=== PATIENT | female | born 1950 | race Caucasian/White ===

== ENCOUNTER 2020-02-09 12:42 | Observation (INO) ==
[~2020-02-09 12:42] MED LIST: Buffered Lidocaine 1% SYRIN 1 ml INTRADERM ONE; Dexamethasone IV 4 MG/ML VIAL 1 ml VIAL IV SLOW PU ONE; Lactated Ringers 1000 ml BAG 1,000 ML IV SCH
[2020-02-09] MEDS ORDERED: Dexamethasone IV 4 MG/ML VIAL 1 ml VIAL ONE (13:05)
[2020-02-09] MEDS ORDERED: ceFAZolin 2 GM PREMIX 2 GM/50 ML BAG ONE (13:05)
[2020-02-09] MEDS ORDERED: Lidocaine 2% PF 5 ML VIAL ONE (13:10)
[2020-02-09] MEDS ORDERED: Ondansetron 4 mg VIAL 2 MG/ML 2 ml VIAL ONE (13:10)
[2020-02-09] MEDS ORDERED: Bupivacaine 0.5% 50 ML MDV VIAL ONE (14:57)
[2020-02-09] MEDS ORDERED: Propofol 10 mg/ml 100 ML BTL 100 ML ONE (14:58)
[2020-02-09] MEDS ORDERED: ROPIVACAINE 5 MG/ML 30 ML BTL (0.5%) ONE (15:04)
[2020-02-09] MEDS ORDERED: Midazolam 5 mg/ml concentrated 5 mg/ml 1 ml VIAL ONE (15:31)
[2020-02-09] MEDS ORDERED: HYDROmorphone 1 MG/1 ML SYRINGE IV PRN (16:02)
[2020-02-09] MEDS ORDERED: Naloxone 0.4 mg VIAL 0.4 mg/ml 1 ml VIAL IV PRN (16:02)
[2020-02-09] MEDS ORDERED: fentaNYL 100 mcg/2 ml 50 MCG/ML VIAL IV PRN (16:02)
[2020-02-09] MEDS ORDERED: Ondansetron 4 mg VIAL 2 MG/ML 2 ml VIAL IV PRN ×2 (16:02→17:20)
[2020-02-09] MEDS ORDERED: Magnesium Hydroxide LIQ 30 ML UDC PO PRN (17:20)
[2020-02-09] MEDS ORDERED: Ondansetron ODT 4 mg TAB 4 MG TAB PO PRN (17:20)
[2020-02-09] MEDS ORDERED: diPHENhydraMINE IV 50 MG/ML 1 ml VIAL (BENADRYL) IV PRN (17:20)
[2020-02-09] MEDS ORDERED: oxyCODONE/Acetamin 5/325 mg TAB PO PRN (17:20)
[2020-02-09] MEDS ORDERED: Lactulose 30 ml UDC PO PRN (17:20)
[2020-02-09] MEDS ORDERED: Morphine 2 MG/ML SYRINGE IV PRN (17:20)
[2020-02-09] MEDS ORDERED: diPHENhydraMINE 25 mg TAB PO PRN (17:20)
[2020-02-09] MEDS ORDERED: oxyCODONE/Acetamin 5/325 mg TAB ONE (19:26)
[2020-02-09] MEDS: oxyCODONE/Acetamin 5/325 mg TAB PO PRN (19:36)
[2020-02-09] MEDS: Lactated Ringers 1000 ml BAG 1,000 ML IV SCH (20:45)
[2020-02-09] MEDS: ceFAZolin 1 GM ADVAN 1 GM in NS 0.9% 50 ML 50 ML IVPB SCH (22:18)
[2020-02-09] MEDS: Magnesium Hydroxide LIQ 30 ML UDC PO SCH (22:21)
[2020-02-10] MEDS: oxyCODONE/Acetamin 5/325 mg TAB PO PRN (00:19)
[2020-02-10] MEDS: ceFAZolin 1 GM Q8H (ADVAN) IVPB SCH ×2 (00:27→07:46)
[2020-02-10] MEDS: Lactated Ringers 1000 ml BAG 1,000 ML IV SCH (07:12)
[2020-02-10] MEDS ORDERED: Vitamin THERAPEUTIC TAB PO SCH (09:00)
[2020-02-10 10:14] LABS: Hematocrit 34 % (35-47); Hemoglobin 11.1 g/dL (12.0-16.0); Mean Platelet Volume 9.7 fL (7.4-10.4); Platelet Count 267 10^3/uL (150-450)
[2020-02-10 10:37] LABS: BUN/Creatinine Ratio 17.1 (8-20); Calcium 9.3 mg/dL (8.6-10.3); EGFR African American 91.3 (>60); EGFR Non-African American 75.5 (>60); Potassium 3.8 mmol/L (3.5-5.0)
[2020-02-10] MEDS: Magnesium Hydroxide LIQ 30 ML UDC PO SCH (10:39)
[2020-02-10 11:15] VITALS: BP 107/50
== END 2020-02-10 15:35 | disposition home or self-care (01) ==
LOC: OR 12:42 → SSU 12:42
PROVIDERS: ADMIT Orthopaedic Surgery Adult Reconstructive Orthopaedic Surgery; ATTEND Orthopaedic Surgery Adult Reconstructive Orthopaedic Surgery

== ENCOUNTER 2021-10-23 07:24 | Observation (INO) ==
[~2021-10-23 07:24] MED LIST changes: -Dexamethasone IV 4 MG/ML VIAL 1 ml VIAL IV SLOW PU ONE; +Lidocaine 2% PF 5 ML VIAL ONE; +Midazolam 2 mg/2 ml VIAL 1 mg/ml 2 ml VIAL (2 mg) ONE; +Phenylephrine IV 10 MG/ML 1 ml VIAL ONE; +fentaNYL 100 mcg/2 ml 50 MCG/ML VIAL ONE
[2021-10-23] MEDS ORDERED: ROPIVACAINE 5 MG/ML 30 ML BTL (0.5%) ONE ×2 (07:32→08:27)
[2021-10-23] MEDS ORDERED: ceFAZolin 2 GM in NS PREMIX 2 GM/100 ML BAG IVPB ONE (07:49)
[2021-10-23] MEDS ORDERED: Midazolam 2 mg/2 ml VIAL 1 mg/ml 2 ml VIAL (2 mg) ONE (08:58)
[2021-10-23] MEDS ORDERED: Bupivacaine 0.5% SDV PF 30ML VIAL ONE (09:16)
[2021-10-23] MEDS ORDERED: Naloxone 0.4 mg VIAL 0.4 mg/ml 1 ml VIAL IV PRN (09:58)
[2021-10-23] MEDS ORDERED: Ondansetron 4 mg VIAL 2 MG/ML 2 ml VIAL IV PRN ×2 (09:58→11:59)
[2021-10-23] MEDS ORDERED: Ondansetron 4 mg VIAL 2 MG/ML 2 ml VIAL ONE (10:12)
[2021-10-23] MEDS ORDERED: Dexamethasone IV 4 MG/ML VIAL 1 ml VIAL ONE (10:12)
[2021-10-23] MEDS ORDERED: Propofol 10 MG/ML 20 ML BTL ONE ×2 (10:22)
[2021-10-23] MEDS ORDERED: Ondansetron ODT 4 mg TAB 4 MG TAB PO PRN (11:59)
[2021-10-23] MEDS ORDERED: Morphine 2 MG/ML SYRINGE IV PRN (11:59)
[2021-10-23] MEDS ORDERED: Magnesium Hydroxide LIQ 30 ML UDC PO PRN (11:59)
[2021-10-23] MEDS ORDERED: Lactulose 30 ml UDC PO PRN (11:59)
[2021-10-23] MEDS ORDERED: fentaNYL 100 mcg/2 ml 50 MCG/ML VIAL ONE (12:22)
[2021-10-23] MEDS: fentaNYL 100 mcg/2 ml 50 MCG/ML VIAL IV PRN ×2 (12:24→12:32)
[2021-10-23] MEDS: Lactated Ringers 1000 ml BAG 1,000 ML IV SCH (14:00)
[2021-10-23] MEDS: ceFAZolin 1 GM ADVAN 1 GM in NS 0.9% 50 ML 50 ML IVPB SCH (17:08)
[2021-10-23] MEDS: Magnesium Hydroxide LIQ 30 ML UDC PO SCH (21:21)
[2021-10-24] MEDS: Lactated Ringers 1000 ml BAG 1,000 ML IV SCH (01:56)
[2021-10-24] MEDS: ceFAZolin 1 GM ADVAN 1 GM in NS 0.9% 50 ML 50 ML IVPB SCH ×2 (01:58→09:37)
[2021-10-24 05:52] LABS: Hematocrit 30 % (35-47); Hemoglobin 9.7 g/dL (12.0-16.0); Mean Platelet Volume 9.4 fL (7.4-10.4); Platelet Count 264 10^3/uL (150-450)
[2021-10-24 06:10] LABS: Calcium 9.1 mg/dL (8.6-10.3); Potassium 4.7 mmol/L (3.5-5.0); eGFR CKD-EPI 80.4 (>60)
[2021-10-24 06:23] LABS: TSH Ultra Thyroid Stim Horm 0.31 mcIU/mL (0.34-5.60)
[2021-10-24] MEDS ORDERED: Vitamin THERAPEUTIC TAB PO SCH (09:00)
[2021-10-24 09:29] LABS: Free T4 0.95 ng/dL (0.61-1.12)
[2021-10-24] MEDS: Magnesium Hydroxide LIQ 30 ML UDC PO SCH (09:37)
[2021-10-24 11:23] VITALS: BP 100/64
== END 2021-10-24 13:35 | disposition home or self-care (01) ==
LOC: OR 07:24 → SSU 07:24
PROVIDERS: ADMIT Orthopaedic Surgery Adult Reconstructive Orthopaedic Surgery; ATTEND Orthopaedic Surgery Adult Reconstructive Orthopaedic Surgery